=== PATIENT | female | born 1960 | race Caucasian/White ===

== ENCOUNTER 2020-10-21 18:27 | Outpatient (CLI) | payer BC, SELFPAY ==
--- NOTE | ~2020-10-21 | XR_ITS ---
EXAMINATION: XR foot LT min 3V DATE: 10/21/2020 18:41 INDICATION: Left foot pain TECHNIQUE: Dorsoplantar, lateral, and 2 oblique views of the left foot were obtained. COMPARISON: None. FINDINGS: Bone alignment is normal. There is no fracture. There is mild osteoarthritis at the first m etatarsophalangeal joint. The soft tissues are unremarkable. IMPRESSION: 1. No acute osseous abnormality. Reviewed, dictated and finalized at location A.
== END 2020-10-21 18:28 | disposition home or self-care (01) ==
LOC: CHSIMG 18:29
PROVIDERS: PCP Family Medicine; Visit Provider Family Medicine
DX: M79.672 Pain in left foot (principal)
CPT/HCPCS: 73630

== ENCOUNTER 2025-01-16 01:50 | Day surgery (SDC) | payer BC, SELFPAY ==
[2024-12-31 09:11] VITALS: BMI 28.3
[2025-01-16 08:34] VITALS: BP 132/91; PULSE 82; RESP 18; TEMP 36.1; O2SAT 100
[2025-01-16] MEDS: LACTATED RINGERS 1,000 ML 150 ML IV CONT (08:42)
--- NOTE | 2025-01-16 09:20 | WPDANESEPPF ---
Anes - Initial Pre Proc Eval Procedure: Operation Date: 01/16/25 10:00 Proposed Procedures p Screening Colonoscopy - Rg Whyte MD Date/Time: 01/16/25 09:20 Surgeon: Rg Whyte MD Pre Op Diagnosis: Encounter for screening for malignant neoplasm of Patient Data Age: 64 Gender: F Height: 1.75 m Weight: 80.1 kg Last Vital Signs Temp 36.1 C L 01/16/25 08:34 Pulse 82 01/16/25 08:34 Resp 18 01/16/25 08:34 BP 132/91 H 01/16/25 08:34 Pulse Ox 100 01/16/25 08:34 O2 Del Method Room Air 01/16/25 08:34 Allergies Allergy/AdvReac Type Severity Reaction Status Date / Time Penicillins Allergy Intermediate Rash Verified 01/16/25 08:32 Home Medications ?Medication ?Instructions ?Recorded ?Confirmed ?Type ascorbic acid (vitamin C) 1,000 mg 1 g PO DAILY 06/20/19 01/16/25 History tablet (Vitamin C) calcium 500 mg (as 1 tablet PO DAILY 06/20/19 01/16/25 History carbonate)-vitamin D3 3.125 mcg (125 unit) tablet (Calcium) calcium 500 mg 1 tablet PO DAILY 06/20/19 01/16/25 History (carb,gluconate)-magnesium 250 mg (gluc,oxide) tablet (Calcium Magnesium) diphenhydramine HCl 25 mg capsule 25 mg PO Q6H PRN Congestion 06/20/19 12/31/24 History ibuprofen 800 mg tablet 800 mg PO Q6H 06/20/19 01/16/25 History loratadine 10 mg tablet 10 mg PO DAILY 06/20/19 01/16/25 History [id number]-[id number] fumarate 18 1 tab-cap PO DAILY 06/20/19 01/16/25 History mg-FA 600 mcg-vit K 40 mcg capsule (Multi For Her) pseudoephedrine HCl 30 mg tablet 30 mg PO Q4-6H PRN Congestion 06/20/19 12/31/24 History vitB2 1.7 mg-niacin 20 mg-B6 2 1 ml sublingual DAILY 06/20/19 01/16/25 History mg-B12 1.2 mg/mL-dexpan sublingual liqd (B Complex) vitamin E 268 mg (400 unit) capsule 400 unit PO DAILY 06/20/19 12/31/24 History Patient hx anesthesia problems: none Family hx anesthesia problems: none Results Review: All pre-operative results and documents have been reviewed as part of the pre-operative evaluation. [facility] Past Medical History Medical History GERD (gastroesophageal reflux disease) Asthma Social History Social History Alcohol intake: current Drinks per week: 1 Living arrangements: with family Gender identity (if verbalized by the patient): Female Spiritual care concerns: No Anes - Eval Final PreProcedure Day of Procedure 01/16/25 09:20 Patient weight: overweight Heart: regular rate and rhythm Lungs: clear to auscultation Airway: Mallampati scale class II Neurological: alert and oriented Last oral intake: >/= 8 hours ASA classification: II Emergent: no Anesthetic plan: proceed Anesthesia type and monitoring: general GIVS and standard monitoring Results Review: All pre-operative results and documents have been reviewed as part of the pre-operative evaluation. Informed Consent: The patient's anesthetic plan and its attendant risks and benefits were discussed with the patient/family/POA. Questions were solicited and answers provided to the satisfaction of the patient/family/POA.
--- NOTE | 2025-01-16 09:46 | PM.IMHP ---
H&P: HPI History of Present Illness Date/Time: 01/16/25 09:46 Chief Complaint: History of colon polyps Narrative: The patient has a history of colonic polyps, the last colonoscopy was in 2019, she had 1 tubular adenoma. Review of Systems Review of Systems: All systems reviewed & are unremarkable except as noted in HPI and below PMFSH Past Medical History Medical History GERD (gastroesophageal reflux disease) Asthma Social History Social History Alcohol intake: current Drinks per week: 1 Living arrangements: with family Gender identity (if verbalized by the patient): Female Spiritual care concerns: No Meds Home Medications and Allergies Home Medications ?Medication ?Instructions ?Recorded ?Confirmed ?Type ascorbic acid (vitamin C) 1,000 mg 1 g PO DAILY 06/20/19 01/16/25 History tablet (Vitamin C) calcium 500 mg (as 1 tablet PO DAILY 06/20/19 01/16/25 History carbonate)-vitamin D3 3.125 mcg (125 unit) tablet (Calcium) calcium 500 mg 1 tablet PO DAILY 06/20/19 01/16/25 History (carb,gluconate)-magnesium 250 mg (gluc,oxide) tablet (Calcium Magnesium) diphenhydramine HCl 25 mg capsule 25 mg PO Q6H PRN Congestion 06/20/19 12/31/24 History ibuprofen 800 mg tablet 800 mg PO Q6H 06/20/19 01/16/25 History loratadine 10 mg tablet 10 mg PO DAILY 06/20/19 01/16/25 History [id number]-[id number] fumarate 18 1 tab-cap PO DAILY 06/20/19 01/16/25 History mg-FA 600 mcg-vit K 40 mcg capsule (Multi For Her) pseudoephedrine HCl 30 mg tablet 30 mg PO Q4-6H PRN Congestion 06/20/19 12/31/24 History vitB2 1.7 mg-niacin 20 mg-B6 2 1 ml sublingual DAILY 06/20/19 01/16/25 History mg-B12 1.2 mg/mL-dexpan sublingual liqd (B Complex) vitamin E 268 mg (400 unit) capsule 400 unit PO DAILY 12/05/19 06/17/25 History Allergies Allergy/AdvReac Type Severity Reaction Status Date / Time Penicillins Allergy Intermediate Rash Verified 01/16/25 08:32 Vital Signs Vital Signs - 24 hr 01/16/25 08:34 Temperature 97 F L Pulse Rate 82 Respiratory Rate 18 Blood Pressure 132/91 H Pulse Oximetry 100 Oxygen Delivery Room Air Exam Const: General: cooperative and healthy appearing Resp: Effort & Inspection: normal respiratory effort and able to speak in complete sentences Auscultation: clear to auscultation bilaterally Cardio: Rate: regular rate Rhythm: regular rhythm GI: Inspection: normal to inspection GI Palp: No No hepatosplenomegaly present Auscultation: normal bowel sounds Rectal Exam: deferred Skin: General skin exam: normal color Psych: Appearance: grossly normal Mental Status: mental status grossly normal Assessment and Plan Assessment and plan (1) History of colonic polyps: Code(s): Z86.0100 - Personal history of colon polyps, unspecified Status: Acute Assessment and Plan: The patient is deemed a good candidate for the procedure. Consent signed. Will proceed.
--- NOTE | 2025-01-16 10:05 | S_PTH ---
PATIENT: Cleopatra Kilpatrick LOC: [facility]#:[id number] AGE/SX: 64/F ROOM: RE01/16/[address]: Rg Whyte MD : 1960 BED: DIS: 01/16/2025 SPEC #: [id number] RECD: 01/16/25 12:54 STATUS: JM REQ #: [id number] MIKAL: 01/16/25 10:[address]: Rg Whyte DEPT: [facility] Surgical RECD BY: Prisca Monzon ENTERED: 01/16/25 12:54 SP TYPE: Surgical OTHR DR: Ru Desai MD Tissues: A - Colon Polypectomy Procedures: Hematoxylin and Eosin Stain Gross and Microscopic Level 4
[2025-01-16 10:06] VITALS: BP 145/92; PULSE 69; RESP 19; O2SAT 100
[2025-01-16 10:16] VITALS: BP 131/89; PULSE 86; RESP 21; O2SAT 100
[2025-01-16 10:26] VITALS: BP 133/82; PULSE 77; RESP 18; O2SAT 100
== END 2025-01-16 10:45 | disposition home or self-care (01) ==
PROVIDERS: PCP Family Medicine; Referring Provider Family Medicine; Visit Provider Internal Medicine Gastroenterology
PROC: 0DJD8ZZ Inspection of Lower Intestinal Tract, Via Natural or Artificial Opening Endoscopic (ICD-10-PCS; CPT 45378; principal; 2025-01-16 10:00)
DX: Z12.11 Encounter for screening for malignant neoplasm of colon (principal); D12.3 Benign neoplasm of transverse colon; K57.30 Diverticulosis of large intestine without perforation or abscess without bleeding
CPT/HCPCS: 45385; 88305; J2003; J2704; J7120